=== PATIENT | female | born 1945 | race Caucasian/White ===

== ENCOUNTER 2020-08-03 10:06 | Outpatient (REF) | payer MEDICARE, SELFPAY ==
--- NOTE | 2020-08-03 | PE_ITS ---
EXAMINATION: Fluorine-18 FDG PET/CT Scan CLINICAL INDICATION: Initial treatment management. Left lung mass. PROCEDURE: 70 minutes following the intravenous administration of 14.1 mCi of fluorine 18 FDG, images from the base of the skull to the mid thighs were obtained using a combined PET/CT scanner with CT scan based attenuation correction. No oral contrast was administered. No intravenous contrast was administered. Transverse, coronal, sagittal, and volume reconstruction projections were obtained. The patient's blood glucose as determined by a finger stick, was 140 mg/dl immediately prior to injection. Total CT exam dose-length product 223.71 mGy-cm COMPARISON: No previous PET/CT scan is available for comparison. CT scan of the chest dated 07/08/2020 and CTA of the abdomen dated 11/14/2019 are available for comparison. FINDINGS: (Slice numbers described in this report are numbered superiorly to inferiorly with slice #1 in the head) NECK AND VISUALIZED HEAD: There is a small focus of increased activity in the sella turcica, SUV Max 6.3, but is more intense than the background cerebral cortical activity. There is also heterogeneity in the left cerebellar hemisphere with somewhat increased activity in a ring shaped focus posteriorly and relatively decreased activity more anteriorly, and the latter appears to correspond to a region of encephalomalacia. There are no other foci of abnormally increased activity in the neck or visualized head. All the other activity in this region appears physiological. There is no cervical lymphadenopathy. THORAX: There is markedly increased FDG activity associated with the previously visualized left perihilar mass. This shows SUV Max 11.0, slice 83/267. On the CT images this measures approximately 4.5 x 3.5 cm in largest transverse dimensions, and approximately 4.4 cm cephalocaudad. The mass extends into the left hilar region and compresses the left upper lobe bronchus. The inferior posterior aspect of this extends to the region of the left lower lobe bronchus, but the extent of this lesion is better visualized on the IV contrast enhanced CT scan dated 07/08/2020. No additional foci of abnormal FDG activity are present in the chest. No additional pulmonary nodules are visualized. There is some scarring or atelectasis anterolaterally in the base of the lingula. This shows no associated abnormal FDG activity. There is no pleural or pericardial fluid, or pneumothorax. There is no mediastinal, supraclavicular, or axillary lymphadenopathy. ABDOMEN AND PELVIS: No foci of abnormal FDG activity are present in the abdomen or pelvis. There is diffuse FDG activity of varying intensities throughout the gastrointestinal tract without a suspicious focal component. There is diffuse diverticulosis with no evidence of diverticulitis. The hollow viscera are otherwise unremarkable. The liver, gallbladder, spleen, kidneys, adrenal glands and pancreas are unremarkable. Uterine fibroids with some calcifications are noted. The pelvic organs are otherwise unremarkable. There is no retroperitoneal, mesenteric, pelvic or inguinal lymphadenopathy. MUSCULOSKELETAL: There are no foci of abnormally increased FDG activity in the osseous structures. There are diffuse degenerative changes in the spine. There is compression deformity in the superior endplate of L3, with no associated abnormal VASCULAR: Diffuse vascular calcifications including coronary are noted. An infrarenal aortic biiliac graft is in place with no associated abnormal FDG activity. PET/PET CT fusion whole body IMPRESSION: 1. Intensely FDG avid left perihilar pulmonary mass, as described above, most consistent with a primary malignancy. 2. No additional abnormalities suspicious for metastatic or other malignant lesions are noted. 3. Diffuse vascular calcifications including coronary.
== END 2020-08-03 10:07 | disposition home or self-care (01) ==
LOC: HO.PET 10:06
PROVIDERS: Visit Provider Internal Medicine
DX: R91.8 Other nonspecific abnormal finding of lung field (principal)

== ENCOUNTER 2020-08-06 15:40 | Outpatient (RCR) | payer MEDICARE, SELFPAY ==
--- NOTE | 2020-08-06 16:00 | MR_ITS ---
EXAMINATION: MR BRAIN WITHOUT AND WITH CONTRAST CLINICAL INFORMATION: Restaging lung carcinoma. COMPARISON: None. TECHNIQUE: Multiplanar, multisequence MRI of the brain was obtained before and after the intravenous administration of 6 mL Gadavist. FINDINGS: There are multiple heterogeneously enhancing masses in the supratentorial and infratentorial brain parenchyma. The largest mass is in the left cerebellar hemisphere and measures 2.7 x 3.5 cm. There is a 2.2 x 1.7 cm enhancing mass lateral to this, and there are also multiple smaller enhancing lesions in the bilateral cerebellar hemispheres. There is mass effect on and distortion of the 4th ventricle which is mildly displaced to the right of midline. Multiple of the lesions demonstrate surrounding vasogenic edema. There is an irregular nonenhancing lesion in the left medial cerebellar hemisphere with extensive surrounding vasogenic edema. There is a small enhancing lesion in the anterior left vermis superiorly with mass effect on the dorsal brainstem. The largest mass in the supratentorial region measures 2.1 x 1.9 cm in the inferior right frontal lobe anteriorly. In addition there are multiple smaller enhancing lesions in the cerebral hemispheres bilaterally. An area of abnormal signal with enhancement is noted adjacent to the trigone of the left lateral ventricle which measures 1.5 x 1.1 cm. Most of these lesions demonstrate surrounding vasogenic edema, but there is no significant mass effect or midline shift in the cerebral hemispheres. There is mild prominence of the supratentorial ventricles with commensurate sulcal prominence. There may be early trapping of the temporal horn of the left lateral ventricle, but there is no juma hydrocephalus at present. There is no evidence of acute hemorrhage. In addition to the edematous signal changes there are extensive increased T2 and FLAIR signal areas in the periventricular and subcortical white matter, and in the priscilla consistent with chronic microvascular ischemic changes. There are no diffusion abnormalities suggestive of acute infarcts. However, multiple of the lesions demonstrate restricted diffusion, most prominent in the region of the the lesion around the trigone of the left lateral ventricle and in the superior vermis anteriorly. There are no extra-axial fluid collections. The cerebellar tonsils are displaced inferiorly from mass effect from the cerebellar lesions, and have a slightly pointed configuration. The upper cervical spinal cord appears normal. There is an area of abnormal marrow signal within the left frontal bone (image 21/26, sequence 7) consistent with a metastasis. The major intracranial flow-voids at the level of the [place] are preserved. The dural venous sinus flow-voids are maintained. The mastoid air cells are well-aerated. There are retention cysts in the right maxillary and sphenoid sinuses. IMPRESSION: 1. There are multiple bilateral supratentorial and infratentorial enhancing lesions consistent with metastases. An area of abnormal marrow signal in the left frontal bone is also consistent with metastasis. 2. The largest lesion is in the left cerebellar hemisphere. A nonenhancing lesion in the medial left cerebellar hemisphere has extensive surrounding vasogenic edema and there is compression of the 4th ventricle and midline shift to the right. There is mild prominence of the supratentorial ventricles bilaterally, and there may be some trapping of the temporal horn of the left lateral ventricle but without evidence of juma hydrocephalus at present. 3. There are chronic microvascular ischemic changes. 4. This critical result was discussed with Kelsy Brumfield by telephone on 08/06/2020 at 5:11 PM and it was ascertained that the content and urgency of the report was understood at the time of direct communication.
--- NOTE | 2020-08-11 09:44 | MHC.HEMONCSW ---
SPOKE WITH PT VIA PHONE YESTERDAY. REPORTED GUANAKO OREILLY IS GOING TO CALL [facility] WITH CONSULT APPOINTMENT. HER SON IS [facility] AND WILL TRANSPORT HER. PREVIOUSLY CONSULT MADE TO [facility].
--- NOTE | 2020-08-18 14:06 | MHC.HEMONC ---
DR CAZARES REFERRED PATIENT TO [facility] FOR CONSULTATION. DOCUMENTS FAXED TO [facility] AT
--- NOTE | 2020-08-26 15:20 | MHC.HEMONC ---
Pt cancelled appointment due to radiation treatment. She will call to reschedule.
--- NOTE | 2021-01-10 11:07 | MHC.HEMONCSW ---
PER [facility] VISITING NURSES... HOSPICE PATIENT. RN AND SW
== END 2021-02-14 | disposition home or self-care (01) ==
LOC: HO.ONC 15:40
PROVIDERS: Visit Provider Internal Medicine
DX: R51.0 Headache with orthostatic component, not elsewhere classified (principal); C34.90 Malignant neoplasm of unspecified part of unspecified bronchus or lung
CPT/HCPCS: 70553

== ENCOUNTER 2020-08-06 17:56 | Observation (INO) | payer MEDICARE, SELFPAY ==
[2020-08-06 17:59] VITALS: BP 206/69; PULSE 90; RESP 18; TEMP 36.7; O2SAT 100; BMI 23.6
--- NOTE | 2020-08-06 19:04 | ED.GENADULT ---
HPI - General Adult General Chief complaint: General Medical Stated complaint: ABNORMAL LABS Time Seen by Provider: 08/06/20 18:55 Source: patient Mode of arrival: ambulatory Limitations: no limitations History of Present Illness HPI narrative: Patient comes to the emergency room after receiving a phone call from Dr. Brumfield. Patient is known to have primary lung cancer, today patient had a brain MRI, and it showed that she has metastasis, and mild midline shift. Patient is aware of the results, patient states that she has no symptoms at all, no neurological deficits, no headache. I received a phone call from Dr. Brumfield. complaint: evaluation Onset (ago): month(s) Location: head Radiation: other ( no symptoms) Severity: mild ( no symptoms) Exacerbating factors: none Related Data Home Medications Medication Instructions Recorded Confirmed aspirin 81 mg PO DAILY 08/06/20 08/06/20 gabapentin 1 cap PO TID 08/06/20 08/06/20 hydrochlorothiazide 1 tab PO DAILY 08/06/20 08/06/20 lisinopril 1 tab PO DAILY 08/06/20 08/06/20 metformin 1 tab PO BID 08/06/20 08/06/20 nifedipine 1 tab PO DAILY 08/06/20 08/06/20 omeprazole 1 cap PO DAILY 08/06/20 08/06/20 pravastatin 1 tab PO 08/06/20 travoprost 1 drp OPHTHALMIC (EYE) BEDTIME 08/06/20 08/06/20 Allergies Allergy/AdvReac Type Severity Reaction Status Date / Time No Known Allergies Allergy Unverified 07/15/20 14:43 [No Known Allergies*] Review of Systems Review of Systems: Constitutional: No Weight loss, No Fever, No Chills, No Night Sweats, No Fatigue, No Malaise ENT/Mouth: No Hearing loss, No Ear Pain, No Nasal Congestion, No Sinus Pain, No Hoarseness, No sore throat, No Rhinorrhea, No Swallowing Difficulty Eyes: No Eye Pain, No Swelling, No Redness, No Foreign Body, No Discharge, No Vision Changes Cardiovascular: No Chest Pain, No SOB, No Dyspnea on Exertion, No Orthopnea, No Edema, No Palpitations Respiratory: No Cough, No Sputum, No Wheezing, No Smoke Exposure, No Dyspnea Gastrointestinal: No Nausea, No Vomiting, No Diarrhea, No Constipation, No abdominal Pain, No Hematochezia, No Melena Genitourinary: no irregular bleeding, No Dysuria, No Urinary Frequency, No Hematuria, No Urinary Incontinence, No Urgency, No Flank Pain, No Urinary Flow Changes, No Hesitancy Musculoskeletal: No joint pain, No Myalgias, No Joint Swelling Skin: No Skin Lesions, No rash Neuro: No Weakness, No Numbness, No Paresthesias, No Loss of Consciousness, No Dizziness, No Headache Psych: No Anxiety/Panic, No Depression, No SI/HI/AH/VH, No Social Issues, Heme/Lymph: No Bruising, No Bleeding,No Lymphadenopathy Endocrine: No Polyuria, No Polydipsia, No Temperature Intolerance [facility] Past Medical History Medical History Diabetes High cholesterol Hypertension Lung cancer Social History Social History Smoking Status: Current every day smoker Smoked in Last 30 Days: Yes Use of substances other than those prescribed or required for medical reasons: No Advance Directives: Yes Advance Directives on File: Yes Advance Directives Date on File: 07/28/20 Physical Exam Vital Signs and I&O and Narrative: Vital Signs and I&O: Vital Signs Temp 98.1 F 08/06/20 17:59 Pulse 75 08/06/20 22:35 Resp 16 08/06/20 22:35 BP 170/93 H 08/06/20 22:35 Pulse Ox 95 08/06/20 22:35 Intake & Output 08/06/20 08/06/20 08/07/20 06:59 18:59 06:59 Intake Total Balance Weight 62.596 kg Intake: Intake, IV Amoun t dexAMETHasone sod phosphate 10 mg In 0.9 % So dium Chloride 50 ml @ 204 mls/h r IV ONCE ONE Rx# :[id number] Body Mass Index 23.6 blood pressure decreased to 180 systolic with no treatment. Appearance: Alert. Oriented X3. No acute distress. Eyes: Pupils equal, round and reactive to light. ENT: Pharynx normal. Neck: Normal inspection. Neck supple. No lymph nodes noted. No crepitus CVS: Normal heart rate and rhythm. Pulses normal. Normal S1 and S2 Respiratory: No respiratory distress. Breath sounds normal. No Wheezing. No rales Abdomen: Soft and nontender. No rigidity. No distention. good BS x4 Skin: Skin warm and dry. Normal skin color. Normal skin turgor. Extremities: No lower extremity edema. No lower extremity edema. No Lacerations. No Rash Neuro: Oriented X 3. No motor deficit. No sensory deficit. Moving all extermities. No slurred speech. Course Reevaluation(s) Reevaluation #1: patient remains asymptomatic. I discussed the patient with Dr. Garcias, patient will be admitted to the hospital service for observation, and steroids, recommendation 4 mg q.8 hours Medical Decision Making Lab Data Result diagrams: 08/06/20 20:50 08/06/20 20:49 Labs: Lab Results 08/06/20 08/06/20 08/06/20 Range/Units 20:49 20:49 20:50 WBC 8.7 (4.8-10.8) X10*3/uL RBC 4.38 (4.20-5.50) X10*6/uL Hgb 14.1 (12.0-16.0) g/dl Hct 40.0 (37-47) % MCV 91.3 (80-98) fL MCH 32.2 (27.0-33.0) pg MCHC 35.3 H (31.0-35.0) g/dl RDW 12.6 (11.0-16.0) % Plt Count 262 (160-400) X10*3/uL MPV 11.5 (9.4-12.3) fL Immature Gran % (Auto) 0.3 (0.0-0.4) % Neut % (Auto) 53.5 (45-73) % Lymph % (Auto) 35.8 (20-40) % [place] % (Auto) 6.8 (2-11) % Eos % (Auto) 3.1 (0-4) % Baso % (Auto) 0.5 (0-2) % Lymph # (Auto) 3.1 (1.2-4.9) X10*3/uL [place] # (Auto) 0.6 (0.1-1.2) X10*3/uL Eos # (Auto) 0.3 (0.0-0.4) X10*3/uL Baso # (Auto) 0.0 (0.0-0.2) X10*3/uL Abs Immat Gran (auto) 0.03 (0.00-0.03) X10*3/uL Absolute Neuts (auto) 4.7 (2.0-8.3) X10*3/uL Absolute Nucleated RBC 0.000 (0.0-0.012) X10*3/uL Nucleated RBC % (auto) 0.0 (0.0-0.2) /100WBC Sodium 141 (135-145) mmol/L Potassium 3.5 (3.3-5.1) mmol/l Chloride 100 (96-108) mmol/L Carbon Dioxide 27 (22-29) mmol/L Anion Gap 18 (12-20) BUN 19 H (9-16) mg/dL Creatinine 0.78 (0.5-1.4) mg/dL Estim Creat Clear Calc 53.0 Estimated GFR > 60 Random Glucose 124 H (60-115) mg/dL Calcium 11.1 H (8.4-10.2) mg/dL Magnesium 0.9 L* (1.6-2.6) mg/dL B-Natriuretic Peptide 58 (<100) pg/mL Imaging Data brain MRI: Radiologist's impression: 1. There are multiple bilateral supratentorial and infratentorial enhancing lesions consistent with metastases. An area of abnormal marrow signal in the left frontal bone is also consistent with metastasis. 2. The largest lesion is in the left cerebellar hemisphere. A nonenhancing lesion in the medial left cerebellar hemisphere has extensive surrounding vasogenic edema and there is compression of the 4th ventricle and midline shift to the right. There is mild prominence of the supratentorial ventricles bilaterally, and there may be some trapping of the temporal horn of the left lateral ventricle but without evidence of juma hydrocephalus at present. 3. There are chronic microvascular ischemic changes. Discharge Plan Discharge Clinical Impression: Brain metastases Patient Disposition: Admitted As Inpatient Prescriptions: No Action lisinopril 20 mg tablet 1 tab PO DAILY RF: 0 travoprost 0.004 % drops 1 drp ophthalmic (eye) BEDTIME RF: 0 omeprazole 40 mg capsule,delayed release(DR/EC) 1 cap PO DAILY RF: 0 pravastatin 80 mg tablet 1 tab PO RF: 0 nifedipine 60 mg tablet extended release 24hr 1 tab PO DAILY RF: 0 hydrochlorothiazide 25 mg tablet 1 tab PO DAILY RF: 0 gabapentin 100 mg capsule 1 cap PO TID RF: 0 metformin 500 mg tablet extended release 24 hr 1 tab PO BID RF: 0 aspirin 81 mg Tablet 81 mg PO DAILY RF: 0
--- NOTE | 2020-08-06 19:18 | PC.NURSE ---
Report taken from Manny, this RN resuming care. Pt found resting in bed, pt reporting a recent brain CA diagnosis with mets to lungs. Pt had a CT scan today and was sent to the ED for steroid therapy. at bedside. This RN contacting pharmacy for Decadron drip for pt. Continue to monitor.
[2020-08-06] MEDS: dexAMETHasone sod phosphate 10 MG in 0.9 % Sodium Chloride 50 ML 204 MG IV (19:58)
--- NOTE | 2020-08-06 19:58 | PC.NURSE ---
Pt medicated with Decadron per EMAR. Pt requesting food/drink, given a sandwich and water. Continue to monitor.
--- NOTE | 2020-08-06 20:13 | PC.NURSE ---
Family calling multiple times to update nurse on pt condition. This RN calling family back, family not answering at this time.
--- NOTE | 2020-08-06 20:21 | PC.NURSE ---
Son Murray calling inquiring as to pts recent scan and plan of care. Pt not giving this RN permission to speak with pt, states I'll call him from my cell phone. Son aware that pt wants to inform him of her recent scans herself.
[2020-08-06 20:51] VITALS: BP 173/59; PULSE 74; RESP 16
--- NOTE | 2020-08-06 20:55 | PC.NURSE ---
Pt resting in bed, labs obtained and sent. Pt denies pain at this time. IVF of Decadron complete. Pt requesting lights dim for comfort. VSS. Continue to monitor.
[2020-08-06 21:00] LABS: MANUAL DIFF FLAG NO
[2020-08-06 21:05] LABS: Basophils Percent Auto 0.5 % (0-2); Eosinophils Absolute Auto 0.3 X10*3/uL (0.0-0.4); Eosinophils Percent Auto 3.1 % (0-4); Hemoglobin 14.1 g/dl (12.0-16.0); Imm Gran Abs Auto 0.03 X10*3/uL (0.00-0.03); Imm Gran Pct Auto 0.3 % (0.0-0.4); Lymphocytes Absolute Auto 3.1 X10*3/uL (1.2-4.9); Lymphocytes Percent Auto 35.8 % (20-40); Mean Corpuscular HGB Conc 35.3 g/dl (31.0-35.0); Mean Corpuscular Hemoglobin 32.2 pg (27.0-33.0); Mean Corpuscular Volume 91.3 fL (80-98); Mean Platelet Volume 11.5 fL (9.4-12.3); Monocytes Absolute Auto 0.6 X10*3/uL (0.1-1.2); Monocytes Percent Auto 6.8 % (2-11); Neutrophils Absolute Auto 4.7 X10*3/uL (2.0-8.3); Neutrophils Percent Auto 53.5 % (45-73); Platelet Count 262 X10*3/uL (160-400); Red Blood Count 4.38 X10*6/uL (4.20-5.50); Red Cell Distribution Width 12.6 % (11.0-16.0); White Blood Count 8.7 X10*3/uL (4.8-10.8)
[2020-08-06 21:33] LABS: Anion Gap 18 (12-20); Blood Urea Nitrogen 19 mg/dL (9-16); Calcium 11.1 mg/dL (8.4-10.2); Carbon Dioxide 27 mmol/L (22-29); Chloride 100 mmol/L (96-108); Estimated Glomerular Filt Rate > 60; Glucose Random 124 mg/dL (60-115); Potassium 3.5 mmol/l (3.3-5.1); Sodium 141 mmol/L (135-145)
[2020-08-06 22:14] LABS: Magnesium 0.9 mg/dL (1.6-2.6)
[2020-08-06] MEDS: Magnesium Sulfate/H2O 2 GM/50 ML PIGGYBACK IV (22:34)
[2020-08-06 22:35] VITALS: BP 170/93; PULSE 75; RESP 16; O2SAT 95
--- NOTE | 2020-08-06 22:35 | PC.NURSE ---
at bedside explaining plan to admit. IV established as initial IV no longer flushing. Mag hung per EMAR. VSS. Continue to monitor.
[2020-08-06 22:57] LABS: B Type Natriuretic Peptide 58 pg/mL (<100)
--- NOTE | 2020-08-06 22:57 | PC.NURSE ---
Med Rec completed at bedside with pt.
--- NOTE | 2020-08-06 23:05 | PC.NURSE ---
Pt ambulating to the bathroom with a lopez/steady gait.
[2020-08-07] VITALS (14 sets, daily range): BP systolic 143–203; BP diastolic 64–89; PULSE 69–88; RESP 14–20; TEMP 36.5–37; O2SAT 94–99; BMI 23.7
--- NOTE | 2020-08-07 | ECG_ITS ---
Test Reason : ABNORMAL LABS Blood Pressure : / mmHG Vent. Rate : 081 BPM Atrial Rate : 081 BPM P-R Int : 160 ms QRS Dur : 080 ms QT Int : 398 ms P-R-T Axes : 075 006 208 degrees QTc Int : 462 ms Normal sinus rhythm Possible Left atrial enlargement ST & T wave abnormality, consider inferolateral ischemia Abnormal ECG When compared with ECG of 26-JUN-2005 14:54, T wave inversion now evident in Anterior leads Referred By: Adilene Blunt Electronically Signed By:CAITLIN BHATIA MD
--- NOTE | 2020-08-07 00:28 | PM.IMHP ---
History of Present Illness Date of Service: 08/07/20 Chief Complaint: abnormal imaging 75 y/o female who presented from [facility] office due to abnormal imaging. Patient reports that was diagnosed several months ago with a Lung mass concerning for cancer. Patient denies receiving any treatment such as chemo or radiation. For the past several weeks has been complaining of on and off episodes of headaches. Patient had MRI of the head done today and found to have possible metastasis with midline shift. Patien denies any neurologic deficits such as weakness or decreased sensation in her body. Denies any chest pain ,SOB, nausea or vomiting. Vitals show a BP of 170/93 with HR of 75. Labs show hypercalcemia of 11.1 with magnesium of 0.9. 2 g of Mag ordered per ED. EKG ordered stat. One dose of decadron initiated. Dr Brumfield private oncologist was contacted about findings stated above. Recommended to start the patient on IV decadron Q8 as of now. Decision for admission given. Patient seen and examined at the [facility], vitals stable. BP of 170/93 with HR of 75. ROS as above otherwise negative. Physical exam unermarkable. PMHx: Lung mas with suspected mets, HTN, HLP, DM, Peripheral neuropathy PSX: none Toxic habits: No hx of alcohol abuse, smoking or IVDA Review of Systems Constitutional: Constitutional: Reports headache(s) and Reports other (malaise) ENT: Reports headache(s) Neurologic: Reports headache(s) [facility] Medical History (Updated 08/07/20 @ 00:40 by Adilene Blunt MD) Diabetes High cholesterol Hypertension Lung cancer Functional capacity: independent ambulation Family history: reviewed and not pertinent Social History Smoking Status: Current every day smoker Smoked in Last 30 Days: Yes Use of substances other than those prescribed or required for medical reasons: No Advance Directives: Yes Advance Directives on File: Yes Advance Directives Date on File: 07/28/20 Meds Allergies Allergy/AdvReac Type Severity Reaction Status Date / Time No Known Allergies Allergy Unverified 07/15/20 14:43 [No Known Allergies*] Home Medications Medication Instructions Recorded Confirmed Type aspirin 81 mg PO DAILY 08/06/20 08/06/20 History gabapentin 1 cap PO TID 08/06/20 08/06/20 History hydrochlorothiazide 1 tab PO DAILY 08/06/20 08/06/20 History lisinopril 1 tab PO DAILY 08/06/20 08/06/20 History metformin 1 tab PO BID 08/06/20 08/06/20 History nifedipine 1 tab PO DAILY 08/06/20 08/06/20 History omeprazole 1 cap PO DAILY 08/06/20 08/06/20 History pravastatin 1 tab PO 08/06/20 History travoprost 1 drp OPHTHALMIC (EYE) BEDTIME 08/06/20 08/06/20 History Physical Exam Vital Signs and Narrative: Vital Signs: Last Vital Signs Temp 98.1 F 08/06/20 17:59 Pulse 75 08/06/20 22:35 Resp 16 08/06/20 22:35 BP 170/93 H 08/06/20 22:35 Pulse Ox 95 08/06/20 22:35 Body Mass Index 23.6 Const: General: cooperative and healthy appearing Orientation/consciousness: patient oriented x3 HENMT: Head: Yes normal to inspection Eyes: General: appearance normal, both eyes and all related structures Neck: Yes normal visual inspection Chest: Chest palpation & inspection: normal inspection of the chest Resp: Effort & Inspection: normal respiratory effort Cardio: Jugular venous distension: no JVD Rhythm: regular rhythm Heart sounds: S1 normal heart sound present and S2 normal heart sound present GI: Inspection: Yes normal to inspection : General: Yes no CVA tenderness Back/Spine/Pelvis: Back: no CVA tenderness Skin: General skin exam: no rashes or lesions noted Neuro: General: patient oriented x3 Extrem: General: Yes normal to inspection Right upper extremity: normal to inspection Left upper extremity: normal to inspection Results Labs Labs: Laboratory Tests 08/06/20 08/06/20 08/06/20 20:49 20:49 20:50 WBC 8.7 RBC 4.38 Hgb 14.1 Hct 40.0 MCV 91.3 MCH 32.2 MCHC 35.3 H RDW 12.6 Plt Count 262 MPV 11.5 Immature Gran % (Auto) 0.3 Neut % (Auto) 53.5 Lymph % (Auto) 35.8 [place] % (Auto) 6.8 Eos % (Auto) 3.1 Baso % (Auto) 0.5 Lymph # (Auto) 3.1 [place] # (Auto) 0.6 Eos # (Auto) 0.3 Baso # (Auto) 0.0 Abs Immat Gran (auto) 0.03 Absolute Neuts (auto) 4.7 Absolute Nucleated RBC 0.000 Nucleated RBC % (auto) 0.0 Sodium 141 Potassium 3.5 Chloride 100 Carbon Dioxide 27 Anion Gap 18 BUN 19 H Creatinine 0.78 Estim Creat Clear Calc 53.0 Estimated GFR > 60 Random Glucose 124 H Calcium 11.1 H Magnesium 0.9 L* B-Natriuretic Peptide 58 Assessment and Plan (1) Lung mass: Status: Acute (2) Brain metastases: Status: Acute (3) Hypertension: Status: Acute (4) Diabetes: Status: Acute (5) High cholesterol: Status: Acute Lung mass concerning with malignancy with mets to brain MRI findings as described above Neuro checks media monitor IMC Decadron scheduled as ordered Dr Brumfield Hematology Oncology Neuro consult in the am HTN conitnue with hctz, amlodipine and nifedipine home dose HLP continue with statin home dose HX of DM Insulin regimen as ordered Hold Hypoglycemic meds Hx of GERD continue with statin home dose
--- NOTE | 2020-08-07 00:44 | PC.NURSE ---
broadcast technician at bedside to obtain EKG.
[2020-08-07] MEDS: Heparin Sodium,Porcine 5,000 UNIT/ML VIAL 5000 UNIT SUBCUT ×4 (02:07→23:35)
[2020-08-07] MEDS: hydrALAZINE HCl 20 MG/ML VIAL 10 MG IVPUSH (02:09)
[2020-08-07 07:15] LABS: MANUAL DIFF FLAG NO
[2020-08-07 07:31] LABS: Basophils Percent Auto 0.1 % (0-2); Hematocrit 39.9 % (37-47); Hemoglobin 13.9 g/dl (12.0-16.0); Imm Gran Abs Auto 0.03 X10*3/uL (0.00-0.03); Imm Gran Pct Auto 0.4 % (0.0-0.4); Lymphocytes Absolute Auto 1.3 X10*3/uL (1.2-4.9); Lymphocytes Percent Auto 18.8 % (20-40); Mean Corpuscular HGB Conc 34.8 g/dl (31.0-35.0); Mean Corpuscular Hemoglobin 31.4 pg (27.0-33.0); Mean Corpuscular Volume 90.1 fL (80-98); Mean Platelet Volume 10.7 fL (9.4-12.3); Monocytes Absolute Auto 0.2 X10*3/uL (0.1-1.2); Monocytes Percent Auto 2.1 % (2-11); Neutrophils Absolute Auto 5.6 X10*3/uL (2.0-8.3); Neutrophils Percent Auto 78.6 % (45-73); Platelet Count 264 X10*3/uL (160-400); Red Blood Count 4.43 X10*6/uL (4.20-5.50); Red Cell Distribution Width 12.2 % (11.0-16.0); White Blood Count 7.1 X10*3/uL (4.8-10.8)
[2020-08-07 08:00] LABS: Anion Gap 13 (12-20); Blood Urea Nitrogen 18 mg/dL (9-16); Carbon Dioxide 30 mmol/L (22-29); Chloride 101 mmol/L (96-108); Creatinine Clr Calc Pharmacy 56.6; Estimated Glomerular Filt Rate > 60; Glucose Random 181 mg/dL (60-115); Potassium 3.7 mmol/l (3.3-5.1); Sodium 140 mmol/L (135-145)
[2020-08-07 08:09] LABS: Glucose, Whole Blood 156 mg/dL (60-115)
[2020-08-07 08:17] LABS: Calcium 10.5 mg/dL (8.4-10.2)
[2020-08-07] MEDS: Insulin Lispro 100 UNIT/ML 3 ML VIAL SUBCUT ×3 (08:22→21:04)
[2020-08-07] MEDS: NIFEdipine ER 60 MG TAB.ER.24 PO (08:25)
[2020-08-07] MEDS: Gabapentin 100 MG CAPSULE PO ×3 (08:26→21:05)
[2020-08-07] MEDS: Aspirin 81 MG TAB.CHEW PO (08:26)
[2020-08-07] MEDS: lisinopriL 20 MG TABLET PO ×2 (08:26→09:11)
[2020-08-07] MEDS: Omeprazole 40 MG CAPSULE.DR PO (08:26)
[2020-08-07] MEDS: dexAMETHasone sod phosphate 4 MG/ML VIAL IVPUSH ×3 (08:28→23:42)
[2020-08-07] MEDS: 0.9 % Sodium Chloride Flush 3 ML SYRINGE IVFLUSH ×3 (08:31→21:05)
[2020-08-07 08:42] LABS: Magnesium 1.5 mg/dL (1.6-2.6)
--- NOTE | 2020-08-07 09:44 | MHC.CM.PN ---
PHONOGRAPH NEEDLE TIP MAKER completed with pt who reports she lives alone but her sister lives upstairs from her. Pt reports she is independent with all care and mobility and has no DME or services at this time. Pt drives and did drive to the hospital however she does not plan on driving herself at DC. Pt has a HCP on file naming her son, Harvey ([phone]) as her agent. Pt also confirms her PCP is Mariya Ferrera. Pt currently on observation status, document delivered. current DC plan is home with no services pt will self arrange transportation
--- NOTE | 2020-08-07 11:59 | PM.EVENT ---
Event Note Event Note: Progress note the patient was seen and evaluated this morning Laying in bed, feels comfortable Denies any fever, chills or shortness of breath Headache has improved No reported other overnight events Hold hydrochlorothiazide for hypercalcemia To get Neurology evaluation along with oncology Start SSI Continue home medications for high blood pressure readings, increase lisinopril to 40 mg daily.
[2020-08-07 12:16] LABS: Glucose, Whole Blood 193 mg/dL (60-115)
--- NOTE | 2020-08-07 12:49 | P.CNHO_ITS ---
Subjective - Subjective Chief complaint: Consult for Brain Mets. Patient: new to practice Consult date: 08/07/20 Requesting Physician: cricket Primary Care Provider: Mariya Alberts MD Medical Summary: DIAGNOSIS: LEFT HILAR MASS. BRAIN METS. HPI - Consult Narrative Reason for consult: BRAIN METS. Narrative: This is a pleasant 75 year old lady who was recently diagnosed with a left felisa hilar Lung Mass, when she presented to the ER, on 07/08. At that time she had presented with symptoms of a cough and generalized weakness and malaise. CT scan of the chest revealed a large left perihilar mass and mediastinal adenopathy. She did admit to a 20 lb weight loss however she attributes to her intentions to lose. She denied any anorexia, trouble breathing, chest pain or hemoptysis. She did have headaches but she attributed that to her diabetes. Denied any dizziness nor blurring of vision. No nausea vomiting. She does admit to chronic heartburn, for which she takes some medicine. as part of the staging workup he underwent an MRI of the brain. this was done yesterday and revealed: brain MRI: Radiologist's impression: 1. There are multiple bilateral supratentorial and infratentorial enhancing lesions consistent with metastases. An area of abnormal marrow signal in the left frontal bone is also consistent with metastasis. 2. The largest lesion is in the left cerebellar hemisphere. A nonenhancing lesion in the medial left cerebellar hemisphere has extensive surrounding vasogenic edema and there is compression of the 4th ventricle and midline shift to the right. There is mild prominence of the supratentorial ventricles bilaterally, and there may be some trapping of the temporal horn of the left lateral ventricle but without evidence of juma hydrocephalus at present. 3. There are chronic microvascular ischemic changes. She was advised to go to the emergency room. Here she received 10 mg of IV loading dose of Decadron. She currently remains on 4 mg IV Q 8 hours. An oncology consultation has been called for further evaluation. Review of Systems - Constitutional Denies anorexia - Eyes Denies blurry vision, Denies double vision - ENT Reports system reviewed and no additional complaints, except as documented - Cardiovascular Denies chest pain - Respiratory Reports cough, Denies change in phlegm color - Gastrointestinal Denies abdominal pain, Denies black, tarry stools, Denies change in bowel habits - Genitourinary Denies abnormal vaginal bleeding - Integumentary/Breasts Skin/Breast: Denies bleeding lesions - Neurologic Reports hearing normal, Reports abnormal gait, Reports headache(s), Reports lack of coordination - Endocrine Denies cold intolerance - Hematologic/Lymphatic Denies easy bleeding PMFSH Medical History: Medical History (Last Updated 08/07/20 @ 00:40 by Adilene Blunt MD) Diabetes High cholesterol Hypertension Lung cancer Functional capacity: independent ambulation Patient : No Family history: reviewed and not pertinent Smoking status: Current every day smoker Home Medications and Allergies Current Medications: Current Medications Generic Name Dose Route Start Last Admin Trade Name Freq PRN Reason Stop Dose Admin Aspirin 81 mg 08/07/20 09:00 08/07/20 08:26 Aspirin 81 Mg Tab.Chew PO 81 mg DAILY BERONICA Administration Dexamethasone Sodium Phosphate 4 mg 08/07/20 08:00 08/07/20 08:28 Dexamethasone Sod Phosphate 4 Mg/Ml Vial IVPUSH 4 mg Q8H BERONICA Administration Gabapentin 100 mg 08/07/20 09:00 08/07/20 08:26 Gabapentin 100 Mg Capsule PO 100 mg TID BERONICA Administration Heparin Sodium (Porcine) 5,000 unit 08/07/20 01:24 08/07/20 08:32 Heparin Sodium,Porcine 5,000 Unit/Ml Vial SUBCUT 5,000 unit Q8H BERONICA Administration Insulin Human Lispro 5 unit 08/07/20 07:30 08/07/20 12:04 Insulin Lispro 100 Unit/Ml 3 Ml Vial SUBCUT 5 unit QIDACHS [facility] Administration Protocol Latanoprost 1 drop 08/07/20 21:00 Latanoprost 0.005 % Ophth Sonia 2.5 Ml Drops EYE-BOTH BEDTIME [facility] Lisinopril 40 mg 08/08/20 09:00 Lisinopril 40 Mg Tablet PO DAILY [facility] Protocol Nifedipine 60 mg 08/07/20 09:00 08/07/20 08:25 Nifedipine Er 60 Mg Tab.Er.24 PO 60 mg DAILY BERONICA Administration Protocol Omeprazole 40 mg 08/07/20 09:00 08/07/20 08:26 Omeprazole 40 Mg Capsule.Dr PO 40 mg DAILY BERONICA Administration Sodium Chloride 3 ml 08/07/20 08:00 08/07/20 08:31 0.9 % Sodium Chloride Flush 3 Ml Syringe IVFLUSH 3 ml QSHIFT BERONICA Administration Home Medications Medication Instructions Recorded Confirmed Type aspirin 81 mg PO DAILY 08/06/20 08/06/20 History gabapentin 1 cap PO TID 08/06/20 08/06/20 History hydrochlorothiazide 1 tab PO DAILY 08/06/20 08/06/20 History lisinopril 1 tab PO DAILY 08/06/20 08/06/20 History metformin 1 tab PO BID 08/06/20 08/06/20 History nifedipine 1 tab PO DAILY 08/06/20 08/06/20 History omeprazole 1 cap PO DAILY 08/06/20 08/06/20 History pravastatin 1 tab PO 08/06/20 History travoprost 1 drp OPHTHALMIC (EYE) BEDTIME 08/06/20 08/06/20 History Allergies Allergy/AdvReac Type Severity Reaction Status Date / Time No Known Allergies Allergy Unverified 07/15/20 14:43 [No Known Allergies*] Physical Exam Vital signs: Vital Signs Temp 98.1 F 08/07/20 08:00 Pulse 72 08/07/20 09:11 Resp 20 08/07/20 08:00 BP 167/78 H 08/07/20 09:11 Pulse Ox 97 08/07/20 08:00 Intake & Output 08/06/20 08/07/20 08/07/20 18:59 06:59 18:59 Intake Total 101 / 101 360 / 360 Balance 101 / 101 360 / 360 Intake: Intake, Oral Amount 360 / 360 Intake, IV Amount 101 / 101 Magnesium Sulfate/H2O 2 gm In 50 / 50 50 ml @ 25 mls/hr IV ONCE ONE Rx#:[id number] dexAMETHasone sod phosphate 10 51 / 51 mg In 0.9 % Sodium Chloride 50 ml @ 204 mls/hr IV ONCE ONE Rx# :[id number] Other: Breakfast % Eaten 75% Number of Unmeasured Voids 4 Urine Bathroom Last Bowel Movement 08/06/20 Weight 62.596 kg 62.7 kg Weight 62.7 kg - Constitutional Present: no acute distress - Routine HEENT Exam Head: Present: normal inspection ENT: Present: mucous membranes moist - Routine Neck Exam Present: supple - Routine Chest/Breast/Axilla Exam Chest wall: Absent: tenderness - Routine Respiratory Exam Present: CTAB - Routine Cardiovascular Exam Cardiovascular: Present: RRR, S1, S2 - Routine Abdominal Exam Present: nontender - Routine Rectal Exam Patient deferred: digital exam - Routine Extremities Exam Present: nontender - Routine Back/Spine/Pelvis Exam Back/Spine: Present: full ROM - Routine Skin Exam Present: intact - Routine Neurological Exam Present: alert, oriented X3, CN II-XII intact, normal reflexes, moving all extremities - Detailed Neurological Exam: Coma Scale Eye Opening: Spontaneous (4) - Routine Psychiatric Exam Present: normal affect, good judgment Hem/Onc Consult Result - Labs CBC & Chem 7: 08/07/20 06:46 08/07/20 06:46 Labs: Short CBC 08/06/20 08/07/20 Range/Units 20:50 06:46 WBC 8.7 7.1 (4.8-10.8) X10*3/uL Hgb 14.1 13.9 (12.0-16.0) g/dl Hct 40.0 39.9 (37-47) % Plt Count 262 264 (160-400) X10*3/uL BMP 08/06/20 08/07/20 20:49 06:46 Sodium 141 140 Potassium 3.5 3.7 Chloride 100 101 Carbon Dioxide 27 30 H BUN 19 H 18 H Creatinine 0.78 0.73 Calcium 11.1 H 10.5 H Assessment and Plan (1) Brain metastases Status: Acute (2) Lung mass Status: Acute This is a pleasant 75-year-old lady with a history of smoking who presented with a large left perihilar mass. As part of the staging evaluation she underwent an MRI of her brain yesterday. This revealed multiple brain metastases with surrounding edema especially over the cerebellum and midline shift. The patient has been admitted for monitoring of her neurological status, for IV Decadron, and to expedite the workup. She has remained stable overnight. PLAN: Would like to proceed with the CT-guided biopsy as soon as possible hopefully by Sunday. I have requested [facility] to contact the navigator for [place] to arrange it. Once we have a tissue diagnosis can decide about further management. If it turns out to be non-small cell lung cancer then she would benefit from radiation therapy to the brain. If it is small cell of the lung, she can get started on systemic chemotherapy, since that should cross the blood-brain barrier. if she remains stable and would like to go home over the weekend she can be switched to the Decadron orally. thank you for this consult, I will follow along with you, cc: Dr. Cortes.
--- NOTE | 2020-08-07 13:45 | PM.NEUROCN ---
History of Present Illness Data of Consult Primary Care Provider: Mariya Alberts MD Review of Systems Constitutional: Constitutional: Reports headache(s) Eyes: Eyes: Reports no additional eye complaints ENT: Reports Normal hearing present and Reports headache(s) Cardiovascular: Cardiovascular: Reports no additional cardiovascular complaints Respiratory: Respiratory: Reports no additional respiratory complaints Gastrointestinal: Gastrointestinal: Reports no additional gastrointestinal complaints Musculoskeletal: Musculoskeletal: Reports abnormal gait Integumentary/Breasts: Skin/Breast: Reports system reviewed and no additional complaints, except as docu Neurologic: Reports Normal hearing present, Reports abnormal gait, Reports headache(s) and Reports lack of coordination Psychiatric: Psychiatric: Reports as per HPI Endocrine: Endocrine: Reports no additional endocrine complaints Hematologic/Lymphatic: Hematologic/Lymphatic: Reports no additional hematologic/lymphatic complaints Allergic/Immunologic: Allergic/Immunologic: Reports no additional allergic/immunologic complaints [facility] Past Medical History Medical History (Updated 08/20/20 @ 09:10 by Maia Steiner) Colonoscopy planned (06/2020) Diabetes GERD (gastroesophageal reflux disease) High cholesterol History of femoral angiogram (2015) Hypertension Lung cancer Neuropathy Peripheral vascular disease Functional capacity: independent ambulation Family History Family History (Updated 08/20/20 @ 10:35 by CHARLIE Holcomb) Father CVD (cardiovascular disease) Mother Diabetes Sister Lung cancer Family history: reviewed and not pertinent Surgical History Surgical History (Updated 08/20/20 @ 10:34 by CHARLIE Holcomb) H/O knee surgery History of angioplasty of vein History of blepharoplasty (2004) History of removal of cyst History of tonsillectomy Social History Social History Smoking Status: Current every day smoker Tobacco Type: Cigarette Packs Per Day: 0 (2 CIGARETTES A DAY) Cigarettes Per Day: 0.0 Years Smoked: 57 Advance Directives Date on File: 07/28/20 service: No Current occupational status: retired Meds Allergies Allergy/AdvReac Type Severity Reaction Status Date / Time No Known Allergies Allergy Verified 08/20/20 10:32 [No Known Allergies*] Home Medications Medication Instructions Recorded Confirmed Type gabapentin 100 mg PO TID 08/06/20 08/18/20 History metformin 500 mg PO BID 08/06/20 08/18/20 History nifedipine 60 mg PO DAILY 08/06/20 08/18/20 History omeprazole 40 mg PO DAILY 08/06/20 08/18/20 History pravastatin 80 mg PO DAILY 08/06/20 08/18/20 History travoprost 1 drp OPHTHALMIC (EYE) BEDTIME 08/06/20 08/18/20 History hydrochlorothiazide 1 tab PO DAILY 08/18/20 08/18/20 History Physical Exam Vital Signs: Vital Signs: Vital Signs Temp Pulse Resp BP Pulse Ox 08/07/20 12:00 98.4 F 74 20 143/64 H 99 08/07/20 09:11 72 167/78 H 08/07/20 08:26 72 167/78 H 08/07/20 08:25 72 167/79 H 08/07/20 08:00 98.1 F 72 20 167/78 H 97 08/07/20 04:00 98.1 F 73 18 176/72 H 99 08/07/20 02:40 18 170/82 H 08/07/20 02:30 81 18 188/78 H 08/07/20 02:20 98.4 F 85 18 194/81 H 99 08/07/20 02:10 88 203/89 H 08/07/20 02:09 88 203/89 H 08/06/20 22:35 75 16 170/93 H 95 08/06/20 20:51 74 16 173/59 H 08/06/20 17:59 98.1 F 90 18 206/69 H 100 Body Mass Index 23.7 Const: General: cooperative, comfortable, no acute distress, well developed, alert and awake Nutritional Appearance: well nourished Orientation/consciousness: oriented to person, oriented to place and oriented to time Limitations: no limitations HENMT: Head: Yes normal to inspection, Yes normocephalic and Yes atraumatic Ears: hearing grossly normal bilaterally General nose exam: Normal external nose present Face and sinus: Yes normal facial exam Mouth: Normal oral and palatal mucosa present Eyes: General: appearance normal, both eyes and all related structures Visual King: normal visual king by confrontation Alignment and Position: alignment normal Periorbital: periorbital findings normal Eyelids: Yes eyelids normal Conjunctivae: conjunctivae normal Sclerae: sclerae normal Corneas: corneas normal Pupils: Equal, round and reactive pupils present and Pupil accommodation reflex normal EOM: EOMs intact bilaterally Direct Ophthalmoscopy: normal light reflex Neck: Neck: Yes normal visual inspection, Yes full ROM and Yes no meningeal signs Thyroid: Thyroid normal Carotids: normal carotid upstroke and bounding pulses Chest: Chest palpation & inspection: normal inspection of the chest Resp: Effort & Inspection: normal respiratory effort Auscultation: clear to auscultation bilaterally Cardio: Jugular venous distension: no JVD Rate: regular rate Rhythm: regular rhythm Heart sounds: S1 normal heart sound present and S2 normal heart sound present Peripheral pulses: Peripheral pulses 2+ throughout GI: Inspection: Yes normal to inspection Percussion: Yes normal to percussion Auscultation: normal bowel sounds Rectal Exam - Female: deferred : General: Yes no CVA tenderness Back/Spine/Pelvis: Back: no CVA tenderness Cervical Spine: normal cervical lordosis and cervical ROM normal Thoracic/Lumbar Spine: thoracic and lumbar spine normal to inspection Skin: General skin exam: no rashes or lesions noted Neuro: General: oriented to person, oriented to place, oriented to time, gait normal, tone normal, moves all extremities, Normal light touch and pain sensation, no meningeal signs, no focal motor deficits, CN's II-XI intact bilaterally, normal sensation to monofilament and deep tendon reflexes 2+ bilaterally Cranial nerves: Yes Equal, round and reactive pupils present and Yes Normal hearing present Cognition (Neuro): normal cognition Speech: Other speech findings present (Neuro) Gait exam (Neuro): Normal gait present Motor exam (neuro): 5/5 motor strength present throughout, Pronator motor function not present, no tremor noted, no asterixis, Motor fasciculations not present, Normal motor muscle tone present throughout and Motor abnormalities not present Sensory Exam: Bilaterally intact graphesthesia Deep tendon reflexes (DTR's): Right triceps reflex intensity grade: 2+, Left triceps reflex intensity grade: 2+, Rt Biceps (C5, C6): 2+, Left biceps reflex intensity grade: 2+, Right brachioradialis reflex intensity grade: 2+, Left brachioradialis reflex intensity grade: 2+, Right patellar reflex intensity grade: 2+, Left patellar reflex intensity grade: 2+, Right ankle reflex intensity grade: 2+ and Left ankle reflex intensity grade: 2+ Plantar Reflex Responses: downgoing: right, left and bilateral Coordination: [id number] test normal, [id number] test normal, tandem gait normal and Romberg test negative Pupils: Normal pupillary reactivity/response: bilateral Extrem: General: Yes normal to inspection, Yes normal exam except as noted and Yes no pedal edema Right upper extremity: normal to inspection Left upper extremity: normal to inspection Psych: Appearance: grossly normal Mental Status: mental status grossly normal Speech and movement: Normal speech and movement present and Clear speech present Affect: normal affect Attitude: cooperative Thought process: Normal thought process present Results Labs CBC & Chem 7: 08/07/20 06:46 08/07/20 06:46 Labs: Short CBC 08/06/20 08/07/20 Range/Units 20:50 06:46 WBC 8.7 7.1 (4.8-10.8) X10*3/uL Hgb 14.1 13.9 (12.0-16.0) g/dl Hct 40.0 39.9 (37-47) % Plt Count 262 264 (160-400) X10*3/uL BMP 08/06/20 08/07/20 20:49 06:46 Sodium 141 140 Potassium 3.5 3.7 Chloride 100 101 Carbon Dioxide 27 30 H BUN 19 H 18 H Creatinine 0.78 0.73 Calcium 11.1 H 10.5 H Assessment and Plan (1) Lung mass: Status: Acute (2) Brain metastases: Problem details: Multiple brain mets , supra and infratentorial with some surrounding edema carolyn . in left cerebellum Status: Acute Impression. Lung cancer with multiple brain mets bilaterally. Recom.: Decadron 4mg tid. Whole brain radiation. Obtain tissue diagnosis of lung lesion to determine chemo options.
--- NOTE | 2020-08-07 14:06 | P.CNNE_ITS ---
History of Present Illness Data of Consult Service Date: 08/07/20 Primary Care Provider: Mariya Alberts MD HPI Reason for consult: Headache, Brain metstases on MRI This is a 75-year-old woman with a history of diabetes, hyperlipidemia and hypertension who was in her usual state of health till a couple weeks ago when she noticed that she was not feeling quite right. She had no specific complaints but felt crappy. She thought she might have acquired COVID so she came to the ER where she had a chest x-ray and a CT scan of the chest that showed a large left hilar mass in her lungs. She is in the process of being worked up for that by Dr. Brumfield. In the last few days, she started to get headaches and was directed to come to the emergency room. She had an MRI of the brain which shows multiple enhancing lesions both supra and infratentorial with the largest ones being in the left cerebellum with some surrounding edema and mass effect. There are multiple cerebellar and brainstem lesions as well as multiple lesions in both hemispheres supratentorially some of which have some edema but no mass effect. The patient has no cognitive decline. She feels no dizziness or change in personality. She has no visual disturbance no balance problems or weakness. She has no cough or shortness of breath. No weight loss is reported. Review of Systems Constitutional: Constitutional: Reports headache(s) ENT: Reports Normal hearing present and Reports headache(s) Musculoskeletal: Musculoskeletal: Reports abnormal gait Neurologic: Reports Normal hearing present, Reports abnormal gait, Reports headache(s) and Reports lack of coordination [facility] Past Medical History Medical History (Updated 08/20/20 @ 09:10 by Maia Steiner) Colonoscopy planned (06/2020) Diabetes GERD (gastroesophageal reflux disease) High cholesterol History of femoral angiogram (2015) Hypertension Lung cancer Neuropathy Peripheral vascular disease Functional capacity: independent ambulation Family History Family History (Updated 08/20/20 @ 10:35 by CHARLIE Holcomb) Father CVD (cardiovascular disease) Mother Diabetes Sister Lung cancer Family history: reviewed and not pertinent Surgical History Surgical History (Updated 08/20/20 @ 10:34 by CHALRIE Holcomb) H/O knee surgery History of angioplasty of vein History of blepharoplasty (2004) History of removal of cyst History of tonsillectomy Social History Social History Smoking Status: Current every day smoker Tobacco Type: Cigarette Packs Per Day: 0 (2 CIGARETTES A DAY) Cigarettes Per Day: 0.0 Years Smoked: 57 Advance Directives Date on File: 07/28/20 service: No Current occupational status: retired Meds Allergies Allergy/AdvReac Type Severity Reaction Status Date / Time No Known Allergies Allergy Verified 08/20/20 10:32 [No Known Allergies*] Home Medications Medication Instructions Recorded Confirmed Type gabapentin 100 mg PO TID 08/06/20 08/18/20 History metformin 500 mg PO BID 08/06/20 08/18/20 History nifedipine 60 mg PO DAILY 08/06/20 08/18/20 History omeprazole 40 mg PO DAILY 08/06/20 08/18/20 History pravastatin 80 mg PO DAILY 08/06/20 08/18/20 History travoprost 1 drp OPHTHALMIC (EYE) BEDTIME 08/06/20 08/18/20 History hydrochlorothiazide 1 tab PO DAILY 08/18/20 08/18/20 History Physical Exam Vital Signs: Vital Signs: Vital Signs Temp Pulse Resp BP Pulse Ox 08/07/20 12:00 98.4 F 74 20 143/64 H 99 08/07/20 09:11 72 167/78 H 08/07/20 08:26 72 167/78 H 08/07/20 08:25 72 167/79 H 08/07/20 08:00 98.1 F 72 20 167/78 H 97 08/07/20 04:00 98.1 F 73 18 176/72 H 99 08/07/20 02:40 18 170/82 H 08/07/20 02:30 81 18 188/78 H 08/07/20 02:20 98.4 F 85 18 194/81 H 99 08/07/20 02:10 88 203/89 H 08/07/20 02:09 88 203/89 H 08/06/20 22:35 75 16 170/93 H 95 08/06/20 20:51 74 16 173/59 H 08/06/20 17:59 98.1 F 90 18 206/69 H 100 Body Mass Index 23.7 Constitutional : Alert, oriented, not in distress Neck : Normal inspection, Supple Cardiovascular : RRR, S1 S2, no lower extremity edema Respiratory : Good bilateral air entry, no crackles, wheezes or rhonchi Gastrointestinal: soft, lax, Normal bowel sounds, Non tender Skin : Warm/Dry, No rash Neurological : Alert & oriented x3, No focal deficit Const: General: cooperative, healthy appearing, comfortable, no acute distress, well developed, alert and awake Nutritional Appearance: well nourished Orientation/consciousness: oriented to person, oriented to place, oriented to time and patient oriented x3 Limitations: no limitations HENMT: Head: Yes normal to inspection, Yes normocephalic and Yes atraumatic Ears: hearing grossly normal bilaterally General nose exam: Normal external nose present Face and sinus: Yes normal facial exam Mouth: Normal oral and palatal mucosa present Eyes: General: appearance normal, both eyes and all related structures Visual King: normal visual king by confrontation Alignment and Position: alignment normal Periorbital: periorbital findings normal Eyelids: Yes eyelids normal Conjunctivae: conjunctivae normal Sclerae: sclerae normal Corneas: corneas normal Pupils: Equal, round and reactive pupils present and Pupil accommodation reflex normal EOM: EOMs intact bilaterally Direct Ophthalmoscopy: normal light reflex Neck: Neck: Yes normal visual inspection, Yes full ROM and Yes no meningeal signs Thyroid: Thyroid normal Carotids: normal carotid upstroke and bounding pulses Chest: Chest palpation & inspection: normal inspection of the chest Resp: Effort & Inspection: normal respiratory effort Auscultation: clear to auscultation bilaterally Cardio: Jugular venous distension: no JVD Rate: regular rate Rhythm: regular rhythm Heart sounds: S1 normal heart sound present and S2 normal heart sound present Peripheral pulses: Peripheral pulses 2+ throughout GI: Inspection: Yes normal to inspection Percussion: Yes normal to percussion Auscultation: normal bowel sounds Rectal Exam - Female: deferred : General: Yes no CVA tenderness Back/Spine/Pelvis: Back: no CVA tenderness Cervical Spine: normal cervical lordosis and cervical ROM normal Thoracic/Lumbar Spine: thoracic and lumbar spine normal to inspection Skin: General skin exam: no rashes or lesions noted Neuro: General: oriented to person, oriented to place, oriented to time, patient oriented x3, gait normal, tone normal, moves all extremities, Normal light touch and pain sensation, no meningeal signs, no focal motor deficits, CN's II-XI intact bilaterally, normal sensation to monofilament and deep tendon reflexes 2+ bilaterally Cranial nerves: Yes Equal, round and reactive pupils present and Yes Normal hearing present Cognition (Neuro): normal cognition Speech: Other speech findings present (Neuro) Gait exam (Neuro): Normal gait present Motor exam (neuro): 5/5 motor strength present throughout, Pronator motor function not present, no tremor noted, no asterixis, Motor fasciculations not present, Normal motor muscle tone present throughout and Motor abnormalities not present Sensory Exam: Bilaterally intact graphesthesia Deep tendon reflexes (DTR's): Right triceps reflex intensity grade: 2+, Left triceps reflex intensity grade: 2+, Rt Biceps (C5, C6): 2+, Left biceps reflex intensity grade: 2+, Right brachioradialis reflex intensity grade: 2+, Left brachioradialis reflex intensity grade: 2+, Right patellar reflex intensity grade: 2+, Left patellar reflex intensity grade: 2+, Right ankle reflex intensity grade: 2+ and Left ankle reflex intensity grade: 2+ Plantar Reflex Responses: downgoing: right, left and bilateral Coordination: ktwapi-oy-sapp test normal, heel-to- arechiga test normal, tandem gait normal and Romberg test negative Pupils: Normal pupillary reactivity/response: bilateral Extrem: General: Yes normal to inspection, Yes normal exam except as noted and Yes no pedal edema Right upper extremity: normal to inspection Left upper extremity: normal to inspection Psych: Appearance: grossly normal Mental Status: mental status grossly normal Speech and movement: Normal speech and movement present and Clear speech present Affect: normal affect Attitude: cooperative Thought process: Normal thought process present Results Labs CBC & Chem 7: 08/07/20 06:46 08/07/20 06:46 Labs: Short CBC 08/06/20 08/07/20 Range/Units 20:50 06:46 WBC 8.7 7.1 (4.8-10.8) X10*3/uL Hgb 14.1 13.9 (12.0-16.0) g/dl Hct 40.0 39.9 (37-47) % Plt Count 262 264 (160-400) X10*3/uL BMP 08/06/20 08/07/20 20:49 06:46 Sodium 141 140 Potassium 3.5 3.7 Chloride 100 101 Carbon Dioxide 27 30 H BUN 19 H 18 H Creatinine 0.78 0.73 Calcium 11.1 H 10.5 H Assessment and Plan (1) Lung mass: Status: Acute (2) Brain metastases: Problem details: Multiple brain mets , supra and infratentorial with some surrounding edema carolyn . in left cerebellum Status: Acute Impression. Lung cancer with multiple brain mets bilaterally. Recom.: Decadron 4mg tid. Whole brain radiation. Obtain tissue diagnosis of lung lesion to determine chemo options.
[2020-08-07 17:02] LABS: Glucose, Whole Blood 132 mg/dL (60-115)
[2020-08-07] MEDS: Magnesium Sulfate/H2O 2 GM/50 ML PIGGYBACK IV (17:16)
[2020-08-07] MEDS: Magnesium Hydrox/Alum Hydrox 30 ML ORAL.SUSP 15 ML PO (19:38)
[2020-08-07] MEDS: Latanoprost 0.005 % Ophth Sol 2.5 ML DROPS 1 DROP EYE-BOTH (21:05)
[2020-08-07 21:14] LABS: Glucose, Whole Blood 219 mg/dL (60-115)
--- NOTE | 2020-08-07 22:08 | CONS_ITS ---
DATE OF SERVICE: HISTORY OF PRESENT ILLNESS: This is a 75-year-old woman with a history of diabetes, hypertension, and hypercholesterolemia, who started feeding unwell without any specific complaints about 2 to 3 weeks ago and thought she may have COVID, so she came to the ER, where she had a chest x-ray which showed a hilar mass. She subsequently had a CAT scan that confirmed that and she came to the ER because she was getting headaches in the last couple of days. Brain MRI was done, which shows multiple cerebral metastasis involving the cerebellum on both sides, left greater than right, multiple lesions and multiple supratentorial lesions. Some of the lesions are associated with edema and there is mass effect in the left cerebellum. The patient's headache is better and she has no problems with her mentation. She has no problems with her balance. No dizziness. No weakness. PAST HISTORY: Diabetes, hypertension, and hyperlipidemia. PHYSICAL EXAMINATION: On examination, she is alert and oriented with normal intellectual functions. Cranial nerves II through XII are normal. Muscle tone and strength are normal in all 4 extremities except for a subtle left triceps weakness. DTRs symmetrical. Plantar responses are flexor. Gait and coordination normal except for minimal ataxia on tandem walking intermittently. IMPRESSION: Lung cancer with brain metastasis, multiple supra and infratentorial with some mass effect in the left cerebellum. History of diabetes, hyperlipidemia, and hypertension. RECOMMENDATIONS: Tissue diagnosis for determining chemotherapy and Decadron 4 mg t.i.d. and arrangements for whole-brain radiation. Thank you for allowing me to participate in her care. MD SONJA Drummond/CHAN / [phone]
[2020-08-08 03:39] VITALS: BP 168/61; PULSE 71; RESP 20; TEMP 37; O2SAT 97
[2020-08-08 07:19] VITALS: BP 151/67; PULSE 73; RESP 18; TEMP 36.8; O2SAT 96
[2020-08-08 07:58] LABS: Glucose, Whole Blood 153 mg/dL (60-115)
[2020-08-08] MEDS: Insulin Lispro 100 UNIT/ML 3 ML VIAL SUBCUT ×2 (08:02→11:28)
[2020-08-08] MEDS: Heparin Sodium,Porcine 5,000 UNIT/ML VIAL 5000 UNIT SUBCUT (08:04)
[2020-08-08] MEDS: dexAMETHasone sod phosphate 4 MG/ML VIAL IVPUSH (08:05)
[2020-08-08] MEDS: 0.9 % Sodium Chloride Flush 3 ML SYRINGE IVFLUSH (08:07)
[2020-08-08] MEDS: Omeprazole 40 MG CAPSULE.DR PO (08:08)
[2020-08-08] MEDS: Gabapentin 100 MG CAPSULE PO (08:08)
[2020-08-08] MEDS: Aspirin 81 MG TAB.CHEW PO (08:09)
[2020-08-08 08:10] VITALS: BP 151/67; PULSE 73
[2020-08-08] MEDS: lisinopriL 40 MG TABLET PO (08:10)
[2020-08-08] MEDS: NIFEdipine ER 60 MG TAB.ER.24 PO (08:10)
[2020-08-08 11:26] LABS: Glucose, Whole Blood 157 mg/dL (60-115)
--- NOTE | 2020-08-08 12:27 | MHC.CM.PN ---
Discharge today, home with no services. Pt will self arrange transportation
--- NOTE | 2020-08-08 16:31 | PM.DS ---
DS: Providers Provider Date of admission: 08/07/20 00:28 Primary care physician: Mariya Alberts MD Consults: 08/07/20 01:24 Consult to Neurology Routine Consulting Provider: [facility] Reason for consultation: brain metastasis Has provider been notified: No Consult to Physician Routine Consulting Provider: [facility] Oncology/Hematology Reason for consultation: Lung mass with mets Has provider been notified: Yes 08/07/20 08:35 Consult to Neurology Routine Consulting Provider: [facility] Reason for consultation: Evaluation for new brain mets with vasogenic changes, headache. DS: Diagnosis Discharge Diagnosis (1) Lung mass: Status: Acute (2) Brain metastases: Status: Acute Problem details: Multiple brain mets , supra and infratentorial with some surrounding edema carolyn . in left cerebellum (3) Diabetes: Status: Acute (4) High cholesterol: Status: Acute (5) Hypertension: Status: Acute DS: Summary Hospital Course Hospital Course: Admission note HPI 75 y/o female who presented from [facility] due to abnormal imaging. Patient reports that was diagnosed several months ago with a Lung mass concerning for cancer. Patient denies receiving any treatment such as chemo or radiation. For the past several weeks has been complaining of on and off episodes of headaches. Patient had MRI of the head done today and found to have possible metastasis with midline shift. Patien denies any neurologic deficits such as weakness or decreased sensation in her body. Denies any chest pain ,SOB, nausea or vomiting. Vitals show a BP of 170/93 with HR of 75. Labs show hypercalcemia of 11.1 with magnesium of 0.9. 2 g of Mag ordered per ED. EKG ordered stat. One dose of decadron initiated. Dr Brumfield private oncologist was contacted about findings stated above. Recommended to start the patient on IV decadron Q8 as of now. Decision for admission given. Patient seen and examined at the [facility], vitals stable. BP of 170/93 with HR of 75. ROS as above otherwise negative. Physical exam unermarkable. The patient was admitted to the hospital for evaluation of abnormal MRI study showing multiple bilateral enhancing lesions in the brain consistent with metastasis. The patient has lung mass noted on previous images and she is supposed to follow-up with intervention radiology next week for biopsy that was set by Dr. Garcias. Her symptoms were mainly headache. She received IV dexamethasone with fair response as her headache resolved. Blood pressure was noted to be elevated. The patient has mildly elevated hypercalcemia. She has a previous studies for PTH and PTH suggesting possible hydrochlorothiazide as the reason for hypercalcemia.hydrochlorothiazide was held for hypercalcemia And discontinued at time of discharge. Continue omeprazole daily for gastric protection dexamethasone 4 mg 3 times a day with meals Increase your lisinopril to 40 mg daily Monitor your blood pressure at home and report 1 week readings to your PCP for further adjustments of medications To follow-up with Dr. Garcias office for further evaluation and management Plan for biopsy of the lung lesion next week. Please call [phone] Sunday morning and speak to interventional radiology to confirm the appointment. Time Spent with Patient Time attestation: Total time spent providing and/or coordinating discharge services: Physical Exam Vital Signs: Vital Signs: Vital Signs Temp Pulse Resp BP Pulse Ox 08/08/20 08:10 73 151/67 H 08/08/20 07:19 98.2 F 73 18 151/67 H 96 08/08/20 03:39 98.6 F 71 20 168/61 H 97 08/07/20 23:38 98.6 F 72 18 155/69 H 94 08/07/20 19:38 97.9 F 79 20 174/83 H 94 Body Mass Index 23.7 Constitutional : Alert, oriented, not in distress Neck : Normal inspection, Supple Cardiovascular : RRR, S1 S2, no lower extremity edema Respiratory : Good bilateral air entry, no crackles, wheezes or rhonchi Gastrointestinal: soft, lax, Normal bowel sounds, Non tender Skin : Warm/Dry, No rash Neurological : Alert & oriented x3, No focal deficit DS: Data Data Completed and Pending Labs on day of discharge: Labs from last 24 hours 08/08/20 08/08/20 08/07/20 11:19 07:54 20:59 POC Glucose 157 H 153 H 219 H 08/07/20 16:57 POC Glucose 132 H Brain MRI IMPRESSION: 1. There are multiple bilateral supratentorial and infratentorial enhancing lesions consistent with metastases. An area of abnormal marrow signal in the left frontal bone is also consistent with metastasis. 2. The largest lesion is in the left cerebellar hemisphere. A nonenhancing lesion in the medial left cerebellar hemisphere has extensive surrounding vasogenic edema and there is compression of the 4th ventricle and midline shift to the right. There is mild prominence of the supratentorial ventricles bilaterally, and there may be some trapping of the temporal horn of the left lateral ventricle but without evidence of juma hydrocephalus at present. 3. There are chronic microvascular ischemic changes. 4. This critical result was discussed with Kelsy Brumfield by telephone on 08/06/2020 at 5:11 PM and it was ascertained that the content and urgency of the report was understood at the time of direct communication. Discharge Plan Discharge Patient Disposition: Home, Self-Care Referrals: Mariya Cary MD [Primary Care Provider] - Discharge Medications: New dexamethasone [Decadron] 4 mg tablet 4 mg PO TID Qty: 90 RF: 0 lisinopril 40 mg Tablet 40 mg PO DAILY Qty: 30 RF: 0 Continued travoprost 0.004 % drops 1 drp ophthalmic (eye) BEDTIME RF: 0 omeprazole 40 mg capsule,delayed release(DR/EC) 1 cap PO DAILY RF: 0 pravastatin 80 mg tablet 1 tab PO RF: 0 nifedipine 60 mg tablet extended release 24hr 1 tab PO DAILY RF: 0 gabapentin 100 mg capsule 1 cap PO TID RF: 0 metformin 500 mg tablet extended release 24 hr 1 tab PO BID RF: 0 aspirin 81 mg Tablet 81 mg PO DAILY RF: 0 Discontinued lisinopril 20 mg tablet 1 tab PO DAILY RF: 0 hydrochlorothiazide 25 mg tablet 1 tab PO DAILY RF: 0 Discharge Orders: Discharge Order (Routine); Ordered 08/08/20 Ordered By: Usama Hernandez Diet: advance to your usual diet Activity on Discharge: As tolerated Discharge Date/Time: 08/08/20 12:29 Visit Report Forms: Patient Portal Discharge page Care Plan Goals: See below Health Concerns: See below Plan of Treatment: you were admitted to the hospital for evaluation of headache and abnormal MRI study Showing multiple spots suggestive of metastatic cancer. You were evaluated by oncologist and neurologist who recommended treatment with dexamethasone. Your headache improved significantly and no neurological symptoms were reported during her hospital stay. Your blood pressure was noticed to be elevated along with your calcium. Hydrochlorothiazide was discontinued for the risk of high calcium level. Your lisinopril was increased To 40 mg daily. Continue omeprazole daily for gastric protection Today dexamethasone 4 mg 3 times a day with meals Increase your lisinopril to 40 mg daily Monitor your blood pressure at home and report 1 week readings to your PCP for further adjustments of medications To follow-up with Dr. Garcias office for further evaluation and management Plan for biopsy of the lung lesion next week. Please call [phone] Sunday morning and speak to interventional radiology to confirm the appointment.
== END 2020-08-08 12:29 | disposition home or self-care (01) ==
LOC: HO.ED 08-07 00:11 → HO.S3 08-07 00:50 → HO.IMC 08-07 01:18
PROVIDERS: Admitting Provider Internal Medicine; Emergency Provider Emergency Medicine; PCP Internal Medicine; Visit Provider Student in an Organized Health Care Education/Training Program
DX: C34.90 Malignant neoplasm of unspecified part of unspecified bronchus or lung (principal); C79.31 Secondary malignant neoplasm of brain; E11.9 Type 2 diabetes mellitus without complications; I10 Essential (primary) hypertension; E78.00 Pure hypercholesterolemia, unspecified; E78.5 Hyperlipidemia, unspecified; E83.52 Hypercalcemia; K21.9 Gastro-esophageal reflux disease without esophagitis; F17.210 Nicotine dependence, cigarettes, uncomplicated; Z79.82 Long term (current) use of aspirin; Z79.899 Other long term (current) drug therapy
CPT/HCPCS: 36415; 80048; 82947; 83735; 83880; 85025; 93005; 96365; 96366; 96372; 96375; 96376; 99219; 99223; 99284; 99285; J1100; J3475

== ENCOUNTER → 2020-08-11 09:45 | Outpatient (BNVA) | payer MEDICARE, SELFPAY | PROVIDERS: PCP Internal Medicine; Visit Provider Internal Medicine Pulmonary Disease | DX: C34.92 Malignant neoplasm of unspecified part of left bronchus or lung (principal); C79.31 Secondary malignant neoplasm of brain; F17.210 Nicotine dependence, cigarettes, uncomplicated | CPT/HCPCS: 99203; 99204 ==